=== PATIENT | male | born 1960 ===

== ENCOUNTER 2017-03-22 10:57 | Inpatient (IN) | payer MEDICAID ==
[2017-03-19 10:02] VITALS: BMI 32.2
[2017-03-22 12:35] LABS: CALCIUM 8.6 mg/dl (8.6-10.4)
[2017-03-22] MEDS ORDERED: Propofol 10 mg/ml Inj (20 ML) ONE (13:28)
[2017-03-22] MEDS ORDERED: Lidocaine Hydrochloride 5 ML INJ ONE (13:29)
[2017-03-22] MEDS ORDERED: Succinylcholine Chloride 20 mg/ml Syr (5 ml) IV ONE (13:29)
[2017-03-22] MEDS ORDERED: Midazolam 2 MG/2 ML VIAL ONE (13:31)
[2017-03-22] MEDS ORDERED: ceFAZolin IV 1 gm in Dextrose 1 GM/50 ML BAG IVPB ONE (13:58)
[2017-03-22] MEDS ORDERED: HEPARIN-NS 5,000 UNITS/500 ML 5,000 UNIT/500 ML BAG IV ONE (14:46)
[2017-03-22] MEDS ORDERED: HYDROmorphone 0.5 mg/0.5 ml ISec IVP PRN (15:53)
[2017-03-22] MEDS ORDERED: Oxycodone/Acetaminophen 5/325 mg Tab PO PRN (15:58)
--- NOTE | 2017-03-23 01:13 | OP ---
PROCEDURE DATE: 03/22/2017 PREOPERATIVE DIAGNOSIS: Chronic renal failure. POSTOPERATIVE DIAGNOSIS: Chronic renal failure. PROCEDURE: Skyler fistula, left wrist. SURGEON: Cheko Aly MD TYPE OF ANESTHESIA: General. ESTIMATED BLOOD LOSS: 30 mL POSTOPERATIVE CONDITION: Stable. INDICATIONS FOR SURGERY: This is a 56-year-old male, presented with needing an AV fistula for pending dialysis treatment. DESCRIPTION OF PROCEDURE: The patient was taken to the operating room. General anesthesia was administered. The left hand, wrist and arm were prepped and draped. A transverse incision was made across the radial artery and cephalic vein, and they both were dissected free. The cephalic vein was dissected free proximally and distally, transected distally and ligated. It was flushed with heparinized saline and a bulldog clamp was placed. Radial artery was then dissected free and looped with vessel loops. Heparin was administered. The radial artery was opened and some atherosclerotic debris was discovered; it was removed with modified endarterectomy fashion and the vein anastomosis was accomplished using 6-0 Prolene. The wound was rather quite "tight". For that reason, full thickness tissue flaps were raised and advancement flap closure was then performed loosely using multiple layers of Monocryl clips. The patient tolerated the procedure well and returned to recovery room in stable condition. Cheko Aly MD
[2017-03-23 01:14] VITALS: RESP 20
[2017-03-23 07:32] LABS: BASO % 0.5 % (0.0-2.0); EOS # 0.1 K/uL (0.0-0.7); HEMOGLOBIN 11.9 g/dL (12.0-18.0); LYMPH # 1.7 K/uL (1.0-4.3); LYMPH % 18.5 % (20.0-40.0); MEAN CELL VOLUME 83.1 fL (80.0-94.0); MEAN CORPUSCULAR HEMOGLOBIN 29.2 pg (27.0-31.0); MEAN CORPUSCULAR HGB CONC 35.1 g/dL (33.0-37.0); MEAN PLATELET VOLUME 9.4 fL (7.2-11.7); MONO # 0.7 K/uL (0.0-0.8); NEUT # 6.5 K/uL (1.8-7.0); RBC 4.07 Mil/uL (4.40-5.90); RED CELL DISTRIBUTION WIDTH 14.2 % (11.5-14.5)
[2017-03-23 08:02] LABS: CALCIUM 8.6 mg/dl (8.6-10.4)
[2017-03-23 08:57] VITALS: BP 145/76; PULSE 64; TEMP 98; O2SAT 98
[2017-03-23] MEDS ORDERED: Ergocalciferol 50,000 Intl Units Cap PO SCH (10:00)
[2017-03-23] MEDS ORDERED: Pneumococcal 23-Valent Vaccine IM ONE (10:00)
[2017-03-23] MEDS ORDERED: Home Med 1 UNIT (Febuxostat [Uloric] 40 MG) PO SCH (10:00)
[2017-03-23] MEDS ORDERED: PATIROMER CALCIUM SORBITEX 8.4 GM PO SCH (10:00)
[2017-03-23] MEDS ORDERED: Influenza Vaccine 60 mcg/0.5 mL SYR (4YR UP) IM ONE (10:00)
--- NOTE | 2017-03-23 17:45 | CP.PCM.CON ---
History of Present Illness - History of Present Illness History of Present Illness: CC: Post Op AV fistula HPI: Pt is a 56 year old white male, with h/o CKD not on HD, being seen by nephrology pt was for AV fistula placement, pt is post op now, denies any acute complains Review of Systems - Review of Systems Systems not reviewed;Unavailable: Acuity of Condition - Constitutional Constitutional: absent: As Per HPI, Anorexia, Chills, Daytime Sleepiness, Excessive Sweating, Fatigue, Fever, Frequent Falls, Headache, Increased Appetite , Lethargy, Malaise, Night Sweats, Snoring, Sleep Apnea, Weight Gain, Weight Loss, Weakness, Other - EENT Eyes: absent: As Per HPI, Blind Spots, Blurred Vision, Change in Vision, Decreased Night Vision, Diplopia, Discharge, Dry Eye, Exophthalmos, Floaters, Irritation, Itchy Eyes, Loss of Peripheral Vision, Pain, Photophobia, Requires Corrective Lenses, Sees Flashes, Spots in Vision, Tunnel Vision, Other Visual Disturbances, Loss of Vision, Other Nose/Mouth/Throat: absent: As Per HPI, Epistaxis, Nasal Congestion, Nasal Discharge, Nasal Obstruction, Nasal Trauma, Nose Pain, Post Nasal Drip, Sinus Pain, Sinus Pressure, Bleeding Gums, Change in Voice, Dental Pain, Dry Mouth, Dysphagia, Halitosis, Hoarsness, Lip Swelling, Mouth Lesions, Mouth Pain, Odynophagia, Sore Throat, Throat Swelling, Tongue Swelling, Facial Pain, Neck Pain, Neck Mass, Other - Cardiovascular Cardiovascular: absent: As Per HPI, Acrocyanosis, Chest Pain, Chest Pain at Rest , Chest Pain with Activity, Claudication, Diaphoresis, Dyspnea, Dyspnea on Exertion, Edema, Irregular Heart Rhythm, Pain Radiating to Arm/Neck/Jaw, Leg Edema, Leg Ulcers, Lightheadedness, Orthopnea, Palpitations, Paroxysmal Nocturnal Dyspnea, Pedal Edema, Radiating Pain, Rapid Heart Rate, Slow Heart Rate, Syncope, Other - Respiratory Respiratory: absent: As Per HPI, Cough, Dyspnea, Hemoptysis, Dyspnea on Exertion , Wheezing, Snoring, Stridor, Pain on Inspiration, Chest Congestion, Excessive Mucous Production, Change in Mucous Color, Pain with Coughing, Other - Gastrointestinal Gastrointestinal: absent: As Per HPI, Abdominal Pain, Belching, Bloating, Change in Bowel Habits, Change in Stool Character, Coffee Ground Emesis, Constipation, Cramping, Diarrhea, Dyspepsia, Dysphagia, Early Satiety, Excessive Flatus, Fecal Incontinence, Heartburn, Hematemesis, Hematochezia, Loose Stools, Melena, Nausea, Odynophagia, Temesmus, Vomiting, Other - Genitourinary Genitourinary: absent: As Per HPI, Change in Urinary Stream, Difficulty Urinating, Dysuria, Flank Pain, Hematuria, Pyuria, Nocturia, Urinary Incontinence, Urinary Frequency, Urinary Hesitance, Urinary Urgency, Voiding Freq/Small Amts, Freq UTI, Hx Renal/Bladder Calculi, Hx /Renal Surgery, Bladder Distension, Other - Musculoskeletal Musculoskeletal: absent: As Per HPI, Abnormal Gait, Arthralgias, Atrophy, Back Pain, Deformity, Joint Swelling, Limited Range of Motion, Loss of Height, Muscle Cramps, Muscle Weakness, Myalgias, Neck Pain, Numbness, Radiating Pain into Limb, Stiffness, Tingling, Other Past Patient History - Past Medical History & Family History Past Medical History?: Yes - Past Social History Smoking Status: Never Smoked - CARDIAC Hx Cardiac Disorders: Yes Hx Hypercholesterolemia: Yes Hx Hypertension: Yes - PULMONARY Hx Respiratory Disorders: No - NEUROLOGICAL Hx Neurological Disorder: No - HEENT Hx HEENT Problems: No - RENAL Hx Chronic Kidney Disease: Yes Hx Renal Failure: Yes (HAS NOT STARTED DIALYSIS) - ENDOCRINE/METABOLIC Hx Endocrine Disorders: No - HEMATOLOGICAL/ONCOLOGICAL Hx Blood Disorders: No - INTEGUMENTARY Hx Dermatological Problems: No - MUSCULOSKELETAL/RHEUMATOLOGICAL Hx Musculoskeletal Disorders: Yes Hx Falls: No Hx Gout: Yes - GASTROINTESTINAL Hx Gastrointestinal Disorders: Yes Other/Comment: colon polyps - GENITOURINARY/GYNECOLOGICAL Hx Genitourinary Disorders: No - PSYCHIATRIC Hx Substance Use: No - SURGICAL HISTORY Hx Surgeries: Yes Other/Comment: HX: VASECTOMY - ANESTHESIA Hx Anesthesia: Yes Hx Anesthesia Reactions: No Hx Malignant Hyperthermia: No Has any member of the family had a problem w/ anesthesia?: No Meds Allergies/Adverse Reactions: Allergies Allergy/AdvReac Type Severity Reaction Status Date / Time No Known Allergies Allergy Verified 03/19/17 10:00 Physical Exam - Constitutional Appears: No Acute Distress - Eye Exam Eye Exam: EOMI, Normal appearance, PERRL Pupil Exam: NORMAL ACCOMODATION, PERRL - ENT Exam ENT Exam: Mucous Membranes Moist, Normal Exam - Respiratory Exam Respiratory Exam: Clear to Auscultation Bilateral, NORMAL BREATHING PATTERN - Cardiovascular Exam Cardiovascular Exam: REGULAR RHYTHM - GI/Abdominal Exam GI & Abdominal Exam: Normal Bowel Sounds, Soft. absent: Tenderness - Rectal Exam Rectal Exam: Deferred Results - Vital Signs Recent Vital Signs: Last Vital Signs Temp 98.0 F 03/23/17 08:56 Pulse 64 03/23/17 08:56 Resp 20 03/23/17 08:56 BP 145/76 03/23/17 08:56 Pulse Ox 98 03/23/17 08:56 - Labs Result Diagrams: 03/23/17 07:17 03/23/17 07:17 Labs: Laboratory Results - last 24 hr 03/23/17 03/23/17 03/23/17 06:55 07:17 07:17 WBC 9.0 RBC 4.07 L Hgb 11.9 L Hct 33.8 L MCV 83.1 MCH 29.2 MCHC 35.1 RDW 14.2 Plt Count 185 MPV 9.4 Neut % (Auto) 72.0 Lymph % (Auto) 18.5 L [place] % (Auto) 8.0 Eos % (Auto) 1.0 Baso % (Auto) 0.5 Neut # 6.5 Lymph # 1.7 [place] # 0.7 Eos # 0.1 Baso # 0.0 Sodium 136 Potassium 4.8 Chloride 108 H Carbon Dioxide 19 L Anion Gap 13 BUN 73 H Creatinine 5.0 H Est GFR ( Amer) 15 Est GFR (Non-Af Amer) 12 POC Glucose (mg/dL) 84 Random Glucose 90 Calcium 8.6 Assessment & Plan (1) CKD (chronic kidney disease) Status: Acute (2) AV fistula Status: Acute
--- NOTE | 2017-03-23 17:48 | CP.PCM.DIS ---
Provider - Provider Date of Admission: 03/22/17 15:57 Attending physician: Cheko Aly MD Diagnosis - Discharge Diagnosis (1) CKD (chronic kidney disease) Status: Acute (2) AV fistula Status: Acute Hospital Course - Lab Results Lab Results: Most Recent Lab Values WBC 9.0 K/uL (4.8-10.8) 03/23/17 07:17 RBC 4.07 Mil/uL (4.40-5.90) L 03/23/17 07:17 Hgb 11.9 g/dL (12.0-18.0) L 03/23/17 07:17 Hct 33.8 % (35.0-51.0) L 03/23/17 07:17 MCV 83.1 fL (80.0-94.0) 03/23/17 07:17 MCH 29.2 pg (27.0-31.0) 03/23/17 07:17 MCHC 35.1 g/dL (33.0-37.0) 03/23/17 07:17 RDW 14.2 % (11.5-14.5) 03/23/17 07:17 Plt Count 185 K/uL (130-400) 03/23/17 07:17 MPV 9.4 fL (7.2-11.7) 03/23/17 07:17 Neut % (Auto) 72.0 % (50.0-75.0) 03/23/17 07:17 Lymph % (Auto) 18.5 % (20.0-40.0) L 03/23/17 07:17 [place] % (Auto) 8.0 % (0.0-10.0) 03/23/17 07:17 Eos % (Auto) 1.0 % (0.0-4.0) 03/23/17 07:17 Baso % (Auto) 0.5 % (0.0-2.0) 03/23/17 07:17 Neut # 6.5 K/uL (1.8-7.0) 03/23/17 07:17 Lymph # 1.7 K/uL (1.0-4.3) 03/23/17 07:17 [place] # 0.7 K/uL (0.0-0.8) 03/23/17 07:17 Eos # 0.1 K/uL (0.0-0.7) 03/23/17 07:17 Baso # 0.0 K/uL (0.0-0.2) 03/23/17 07:17 Sodium 136 mmol/L (132-148) 03/23/17 07:17 Potassium 4.8 mmol/L (3.6-5.2) 03/23/17 07:17 Chloride 108 mmol/L (98-107) H 03/23/17 07:17 Carbon Dioxide 19 mmol/L (22-30) L 03/23/17 07:17 Anion Gap 13 (10-20) 03/23/17 07:17 BUN 73 mg/dL (9-20) H 03/23/17 07:17 Creatinine 5.0 mg/dL (0.8-1.5) H 03/23/17 07:17 Est GFR ( Amer) 15 03/23/17 07:17 Est GFR (Non-Af Amer) 12 03/23/17 07:17 POC Glucose (mg/dL) 84 mg/dL (65-110) 03/23/17 06:55 Random Glucose 90 mg/dL (75-110) 03/23/17 07:17 Calcium 8.6 mg/dl (8.6-10.4) 03/23/17 07:17 - Hospital Course Hospital Course: Pt is for discahrge today, s/p Av fistula placement as advised by nephrology for CKD Discharge Plan - Follow Up Plan Condition: GOOD Disposition: HOME/ ROUTINE Instructions: Chronic Kidney Disease (DC), Renal Failure Diet (DC), Heart Healthy Diet (DC), Arteriovenous Fistula Creation for Hemodialysis (DC), Arteriovenous Graft Placement for Hemodialysis (DC), Low Sodium Diet (DC) Additional Instructions: Activity as tolerated. Referrals: Bob Pearce MD [Staff Provider] - 1 Week Cheko Aly MD [Staff Provider] - 1 Week
[2017-03-27] MEDS ORDERED: Ergocalciferol 50,000 Intl Units Cap PO SCH (10:00)
== END 2017-03-23 14:55 | disposition home or self-care (01) | DRG 315 ==
LOC: C.SDS 10:57 → C.9S 15:57 → C.6T 17:23
PROVIDERS: ADMIT Surgery; ATTEND Surgery
PROC: 031C0ZF Bypass Left Radial Artery to Lower Arm Vein, Open Approach (ICD-10-PCS; principal; 2017-03-22 12:00)
DX: I12.9 Hypertensive chronic kidney disease with stage 1 through stage 4 chronic kidney disease, or unspecified chronic kidney disease (principal); E78.00 Pure hypercholesterolemia, unspecified; N18.9 Chronic kidney disease, unspecified; Z79.899 Other long term (current) drug therapy